=== PATIENT | male | born 1950 | race Caucasian/White ===

== ENCOUNTER 2025-06-11 12:51 | Inpatient (IN) ==
[2025-06-11 14:13] LABS: Anion Gap 14.0 (8.0-16.0); Blood Urea Nitrogen 14 mg/dL (8-23); Calcium 9.0 mg/dL (8.6-10.4); Carbon Dioxide 24 mmol/L (22-30); Chloride 97 mmol/L (96-108); Glucose 119 mg/dL (70-105); Potassium 3.6 mmol/L (3.3-5.1); Sodium 135 mmol/L (133-145)
[2025-06-11 14:13] LABS: Basophils # (Auto) 0.02 K/mcL (0.00-0.30); Basophils % (Auto) 0.2 % (0.0-2.0); Eosinophils # (Auto) 0.04 K/mcL (0.00-0.70); Eosinophils % (Auto) 0.4 % (0.0-7.0); Hematocrit 39.9 % (40.1-51.0); Hemoglobin 13.6 g/dL (13.7-17.5); Lymphocytes # (Auto) 1.30 K/mcL (1.50-4.80); Lymphocytes % (Auto) 14.0 % (15.5-49.0); Mean Corpuscular HGB Conc 34.1 g/dL (31.0-36.0); Monocytes # (Auto) 1.05 K/mcL (0.10-0.90); Monocytes % (Auto) 11.3 % (1.0-12.0); Neutrophils % (Auto) 74.0 % (38.0-78.0); Platelet Count 156 K/mcL (140-440); RBC 4.35 M/mcL (4.63-6.08); WBC 9.3 K/mcL (4.5-11.0)
[2025-06-11] MEDS ORDERED: HEPARIN 5,000 UNIT/ML VIAL IV PRN ×3 (14:53)
[2025-06-11] MEDS: HEPARIN SOD,PORK IN 0.45% NACL 500 ML IV SCH (15:32)
[2025-06-11] MEDS: HEPARIN 5,000 UNIT/ML VIAL IV ONE (15:32)
[2025-06-11 16:19] LABS: INR 1.1 (0.9-1.1); Partial Thromboplastin Time 35.1 sec (20.0-37.0); Prothrombin Time 15.8 sec (11.9-14.5)
[2025-06-11] MEDS ORDERED: MAGNESIUM SULFATE 2 GM/50 ML BAG IV PRN (17:09)
[2025-06-11] MEDS ORDERED: SENNOSIDES 1 TABLET PO PRN (17:09)
[2025-06-11] MEDS ORDERED: POTASSIUM CHLORIDE 20 MEQ TABLET PO PRN ×2 (17:09)
[2025-06-11] MEDS ORDERED: POTASSIUM CHLORIDE 40 MEQ in DEXTROSE 5% IN WATER 500 ML IV PRN (17:09)
[2025-06-11] MEDS ORDERED: ONDANSETRON 4 MG/2 ML VIAL IV PRN (17:09)
[2025-06-11] MEDS ORDERED: IPRATROPIUM/ALBUTEROL 3 ML AMPUL.NEB NEB PRN (17:09)
[2025-06-11] MEDS ORDERED: METOCLOPRAMIDE 10 MG/2 ML VIAL IV PRN (17:09)
[2025-06-11] MEDS: 0.9 % SODIUM CHLORIDE 1,000 ML IV ONE (17:51)
[2025-06-11] MEDS: DOCUSATE SODIUM 100 MG CAPSULE PO SCH (19:32)
[2025-06-11] MEDS: ATORVASTATIN 40 MG TABLET PO SCH (20:24)
[2025-06-11] MEDS: ACETAMINOPHEN 325 MG TABLET PO PRN (20:24)
[2025-06-12 06:17] LABS: ALT/SGPT 8 U/L (<40); AST/SGOT 19 U/L (<40); Albumin 3.9 gm/dL (3.2-5.2); Albumin/Globulin Ratio 1.5 (1.0-2.3); Alkaline Phosphatase 51 U/L (39-117); Anion Gap 13.0 (8.0-16.0); Bilirubin,Direct 0.6 mg/dL (<0.3); Bilirubin,Total 1.5 mg/dL (0.1-1.0); Blood Urea Nitrogen 16 mg/dL (8-23); Calcium 8.9 mg/dL (8.6-10.4); Carbon Dioxide 22 mmol/L (22-30); Chloride 96 mmol/L (96-108); Globulin 2.6 gm/dL (2.2-3.7); Glucose 134 mg/dL (70-105); Phosphorous 2.3 mg/dL (2.5-4.5); Potassium 3.7 mmol/L (3.3-5.1); Sodium 131 mmol/L (133-145); Triglycerides 85 mg/dL (<150); Uric Acid 4.7 mg/dL (2.5-8.0)
[2025-06-12] MEDS ORDERED: HYDROCHLOROTHIAZIDE 25 MG TABLET PO SCH (09:00)
[2025-06-12] MEDS ORDERED: NON FORMULARY MEDICATION 1 DOSE MISCELL (Lisinopril-Hydrochlorothiazide 20-25 mg tablet) PO SCH (09:00)
[2025-06-12] MEDS: APIXABAN 5 MG TABLET PO SCH (09:11)
[2025-06-12] MEDS: FINASTERIDE 5 MG TABLET PO SCH (09:11)
[2025-06-12] MEDS: LISINOPRIL 20 MG TABLET PO SCH (09:11)
[2025-06-12] MEDS: SODIUM CHLORIDE 1 GM TABLET PO SCH (09:11)
[2025-06-12] MEDS: hydrALAZINE 20 MG/ML VIAL IV PRN (11:36)
[2025-06-12] MEDS: PANTOPRAZOLE 40 MG PACKET PO SCH (16:39)
[2025-06-13 05:52] LABS: Basophils # (Auto) 0.02 K/mcL (0.00-0.30); Basophils % (Auto) 0.3 % (0.0-2.0); Eosinophils # (Auto) 0.09 K/mcL (0.00-0.70); Eosinophils % (Auto) 1.2 % (0.0-7.0); Hematocrit 36.9 % (40.1-51.0); Hemoglobin 12.5 g/dL (13.7-17.5); Lymphocytes # (Auto) 1.31 K/mcL (1.50-4.80); Lymphocytes % (Auto) 16.8 % (15.5-49.0); Mean Corpuscular HGB Conc 33.9 g/dL (31.0-36.0); Monocytes # (Auto) 0.99 K/mcL (0.10-0.90); Monocytes % (Auto) 12.7 % (1.0-12.0); Neutrophils % (Auto) 68.6 % (38.0-78.0); Platelet Count 157 K/mcL (140-440); RBC 3.99 M/mcL (4.63-6.08); WBC 7.8 K/mcL (4.5-11.0)
[2025-06-13 06:16] LABS: ALT/SGPT 10 U/L (<40); AST/SGOT 19 U/L (<40); Albumin 3.7 gm/dL (3.2-5.2); Albumin/Globulin Ratio 1.4 (1.0-2.3); Alkaline Phosphatase 50 U/L (39-117); Anion Gap 12.0 (8.0-16.0); Bilirubin,Total 1.1 mg/dL (0.1-1.0); Blood Urea Nitrogen 22 mg/dL (8-23); Calcium 8.8 mg/dL (8.6-10.4); Carbon Dioxide 23 mmol/L (22-30); Chloride 96 mmol/L (96-108); Globulin 2.6 gm/dL (2.2-3.7); Glucose 121 mg/dL (70-105); Potassium 4.1 mmol/L (3.3-5.1); Sodium 131 mmol/L (133-145)
[2025-06-13] MEDS: POLYETHYLENE GLYCOL 3350 17 GM PACKET PO PRN (12:50)
[2025-06-13 13:21] VITALS: TEMP 98.2; O2SAT 95
== END 2025-06-13 14:00 | disposition home or self-care (01) | DRG 175 ==
LOC: ED 12:51 → ICU 17:05
PROVIDERS: ADMIT Internal Medicine; ATTEND Internal Medicine